=== PATIENT | female | born 1945 | race Caucasian/White ===

== ENCOUNTER 2019-06-10 11:31 | Emergency (ER) | payer MEDICARE, BC ==
[2019-06-10] MEDS ORDERED: Ondansetron 4 MG Tab.DIS PO ONE (11:40)
[2019-06-10] MEDS ORDERED: Alum Hydroxide/Mag Hydroxide 15 ML, Lidocaine 2% 15 ML PO ONE ×4 (11:41→13:56)
[2019-06-10] MEDS ORDERED: Ketorolac 30 MG/ML SDV IVPUSH ONE (12:08)
[2019-06-10] MEDS ORDERED: Sodium Chloride 0.9% 1,000 ML IV SCH (12:15)
[2019-06-10] MEDS ORDERED: Iopamidol 755 Mg/ML 100 ML Bottle IV ONE (13:48)
[2019-06-10] MEDS ORDERED: Promethazine 25 MG/ML SDV IM ONE (13:55)
[2019-06-10] MEDS ORDERED: LORazepam 1 MG Tab PO ONE (13:55)
[2019-06-10] MEDS: Sodium Chloride 0.9% 10 ML Syringe FLUSH PRN ×2 (14:22→15:40)
[2019-06-10 14:52] VITALS: BP 144/70; PULSE 95
--- NOTE | 2019-06-10 15:14 | EDM.PDOC ---
ED HPI GENERAL MEDICAL PROBLEM - General Chief Complaint: Gastrointestinal Problem Stated Complaint: ABD PAIN Time Seen by Provider: 06/10/19 11:35 Source of Information: Reports: Patient History Limitations: Reports: No Limitations - History of Present Illness INITIAL COMMENTS - FREE TEXT/NARRATIVE: Patient presented to the ED via EMS because of diffuse abdominal pain which stared at 1 am today. The pain is cramping,7/10, with associated nausea but no vomiting. There is no changes in bowel movements or urinary symptoms, there is no fever or chills. abdominal Pain Score (Numeric/FACES): 6 - Related Data Allergies Allergy/AdvReac Type Severity Reaction Status Date / Time cefadroxil hydrate Allergy Cannot Verified 05/13/15 10:35 [From Franko] Remember Home Meds: Home Meds Ascorbate Calcium [Vitamin C] 500 mg PO DAILY 05/19/15 [History] Calcium Carbonate/Vitamin D3 [Calcium 600 + D Tablet] 1 each PO DAILY 05/19/15 [ History] Flaxseed Oil [Flax Oil] 1,000 mg PO DAILY 05/19/15 [History] Folic Acid 0.4 mg PO DAILY 05/19/15 [History] Multivitamin with Minerals [Multivitamins with Minerals] 1 each PO DAILY [History] Acetaminophen/oxyCODONE [Percocet 325-5 MG] 1 - 2 each PO Q4H #15 tab 06/10/19 [ Rx] Ondansetron [Zofran ODT] 4 mg PO Q4H PRN #10 tab.dis 06/10/19 [Rx] Tamoxifen [Nolvadex] 20 mg PO DAILY 06/10/19 [History] prednisoLONE acetate [Pred Forte 1% Ophth Susp] 1 drop EYERT DAILY 06/10/19 [ History] Past Medical History Other HEENT History: 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 Other Cardiovascular History: MITRAL VALVE ABNORMALITY Other Respiratory History: SEASONAL ALLERGIES Other Gastrointestinal History: HEARTBURN TREATS WITH PEPPERMINTS. Other Neuro History: SURGERY FOR BRAIN TUMOR 1991, MENEIRES SYNDROME OF LEFT EAR. Other Dermatologic History: OF LEFT FOREHEAD. - Past Surgical History Other Female Surgeries/Procedures: 1 PARA 0 AB 1 DIAGNOSITIC LAPAROSCOPY Social & Family History - Family History Family Medical History: Noncontributory - Tobacco Use Smoking Status *Q: Former Smoker Used Tobacco, but Quit: Yes Month/Year Tobacco Last Used: 07/1988 - Caffeine Use Caffeine Use: Reports: Coffee, Tea - Recreational Drug Use Recreational Drug Use: No ED ROS GENERAL - Review of Systems Review Of Systems: See Below Constitutional: Reports: No Symptoms HEENT: Reports: No Symptoms Respiratory: Reports: No Symptoms Cardiovascular: Reports: No Symptoms Endocrine: Reports: No Symptoms GI/Abdominal: Reports: Abdominal Pain, Nausea. Denies: Black Stool, Bloody Stool, Constipation, Distension, Vomiting Musculoskeletal: Reports: No Symptoms Skin: Reports: No Symptoms Neurological: Reports: No Symptoms ED EXAM, GI/ABD - Physical Exam Exam: See Below Exam Limited By: No Limitations General Appearance: Alert, WD/WN, No Apparent Distress Ears: Normal External Exam, Normal Canal, Hearing Grossly Normal, Normal TMs Nose: Normal Inspection, Normal Mucosa, No Blood Throat/Mouth: Normal Inspection, Normal Lips, Normal Teeth, Normal Gums, Normal Oropharynx, Normal Voice Head: Atraumatic, Normocephalic Neck: Normal Inspection, Supple, Non-Tender, Full Range of Motion Respiratory/Chest: No Respiratory Distress, Lungs Clear, Normal Breath Sounds Cardiovascular: Normal Peripheral Pulses, Regular Rate, Rhythm, No Edema, No Gallop GI/Abdominal Exam: Normal Bowel Sounds, Soft, Other (diffusely tender). No: Guarding Course - Vital Signs Text/Narrative:: labs/CT scan reviewed with patient and with full understanding CT abd/pelvis-see result,consistent with pancreatitis NS 1 L bolus Zofran 4 mg IV GI cxocktail toradol 15 mg IV x1 morphine 2 mg IV x1 There is significant improvement of her pain and nausea Case discussed with Dr Fields who agreed with the plan to discharge patient to home for as long as she afebrile,normal wbc and is able to tolerate ora pain meds and anti emetics Last Recorded V/S: Last Vital Signs Temp 36.6 C 06/10/19 14:51 Pulse 95 06/10/19 14:51 Resp 15 06/10/19 14:51 BP 144/70 H 06/10/19 14:51 Pulse Ox 95 06/10/19 14:51 - Orders/Labs/Meds Orders: Active Orders 24 hr Category Date Time Status Abdomen Ltd [US] Stat Exams 06/10/19 14:44 Taken Abdomen Pelvis w Cont [CT] Stat Exams 06/10/19 12:05 Taken Sodium Chloride 0.9% [Normal Saline] 1,000 ml Med 06/10/19 12:15 Active IV ASDIRECTED Sodium Chloride 0.9% [Saline Flush] Med 06/10/19 12:05 Active 10 ml FLUSH ASDIRECTED PRN Saline Lock Insert [OM.PC] Routine Oth 06/10/19 12:05 Ordered Medication Orders Sodium Chloride (Normal Saline) 1,000 mls @ 999 mls/hr IV ASDIRECTED RASHEL Last Admin: 06/10/19 12:42 Dose: 999 mls/hr Sodium Chloride (Saline Flush) 10 ml FLUSH ASDIRECTED PRN PRN Reason: Keep Vein Open Last Admin: 06/10/19 15:40 Dose: 10 ml Admin: 06/10/19 14:22 Dose: 10 ml Labs: Laboratory Tests 06/10/19 06/10/19 06/10/19 Range/Units 12:23 12:25 12:25 WBC 11.7 (4.5-12.0) X10-3/uL RBC 4.28 (3.23-5.20) x10(6)uL Hgb 13.5 (11.5-15.5) g/dL Hct 39.9 (30.0-51.3) % MCV 93.3 (80-96) fL MCH 31.6 (27.7-33.6) pg MCHC 33.9 (32.2-35.4) g/dL RDW 12.5 (11.5-15.5) % Plt Count 263 (125-369) X10(3)uL MPV 9.2 (7.4-10.4) fL Add Manual Diff Yes Neutrophils % (Manual) 91 H (46-82) % Lymphocytes % (Manual) 6 L (13-37) % Monocytes % (Manual) 3 L (4-12) % Sodium 142 (135-145) mmol/L Potassium 3.6 (3.5-5.3) mmol/L Chloride 106 (100-110) mmol/L Carbon Dioxide 29 (21-32) mmol/L BUN 16 (7-18) mg/dL Creatinine 0.9 (0.55-1.02) mg/dL Est Cr Clr Drug Dosing TNP Estimated GFR (MDRD) > 60 (>60) BUN/Creatinine Ratio 17.8 (9-20) Glucose 147 H (80-116) mg/dL Calcium 9.6 (8.6-10.2) mg/dL Total Bilirubin 1.0 (0.1-1.3) mg/dL AST 84 H (5-25) IU/L ALT 204 H* (12-36) U/L Alkaline Phosphatase 113 H (56-112) IU/L Total Protein 7.2 (6.0-8.0) g/dL Albumin 3.9 (3.2-4.6) g/dL Globulin 3.3 g/dL Albumin/Globulin Ratio 1.2 Amylase 2456 H* (25-115) U/L Lipase (73-393) U/L Urine Color Yellow (YELLOW) Urine Appearance Slightly cloudy (CLEAR) Urine pH 6.0 (5.0-6.5) Ur Specific [place] 1.025 (1.010-1.025) Urine Protein Trace (NEGATIVE) mg/dL Urine Glucose (UA) Normal (NORMAL) mg/dL Urine Ketones 50 H (NEGATIVE) mg/dL Urine Occult Blood Negative (NEGATIVE) Urine Nitrite Negative (NEGATIVE) Urine Bilirubin Negative (NEGATIVE) Urine Urobilinogen 1 H (NEGATIVE) mg/dL Ur Leukocyte Esterase Negative (NEGATIVE) Urine WBC 0-5 (0-5) Ur Squamous Epith Cells Few H (NS,R,O) Urine Bacteria Moderate H (NS) 06/10/19 Range/Units 12:25 WBC (4.5-12.0) X10-3/uL RBC (3.23-5.20) x10(6)uL Hgb (11.5-15.5) g/dL Hct (30.0-51.3) % MCV (80-96) fL MCH (27.7-33.6) pg MCHC (32.2-35.4) g/dL RDW (11.5-15.5) % Plt Count (125-369) X10(3)uL MPV (7.4-10.4) fL Add Manual Diff Neutrophils % (Manual) (46-82) % Lymphocytes % (Manual) (13-37) % Monocytes % (Manual) (4-12) % Sodium (135-145) mmol/L Potassium (3.5-5.3) mmol/L Chloride (100-110) mmol/L Carbon Dioxide (21-32) mmol/L BUN (7-18) mg/dL Creatinine (0.55-1.02) mg/dL Est Cr Clr Drug Dosing Estimated GFR (MDRD) (>60) BUN/Creatinine Ratio (9-20) Glucose (80-116) mg/dL Calcium (8.6-10.2) mg/dL Total Bilirubin (0.1-1.3) mg/dL AST (5-25) IU/L ALT (12-36) U/L Alkaline Phosphatase (56-112) IU/L Total Protein (6.0-8.0) g/dL Albumin (3.2-4.6) g/dL Globulin g/dL Albumin/Globulin Ratio Amylase (25-115) U/L Lipase > 1500 H (73-393) U/L Urine Color (YELLOW) Urine Appearance (CLEAR) Urine pH (5.0-6.5) Ur Specific [place] (1.010-1.025) Urine Protein (NEGATIVE) mg/dL Urine Glucose (UA) (NORMAL) mg/dL Urine Ketones (NEGATIVE) mg/dL Urine Occult Blood (NEGATIVE) Urine Nitrite (NEGATIVE) Urine Bilirubin (NEGATIVE) Urine Urobilinogen (NEGATIVE) mg/dL Ur Leukocyte Esterase (NEGATIVE) Urine WBC (0-5) Ur Squamous Epith Cells (NS,R,O) Urine Bacteria (NS) Meds: Medications Generic Name Dose Route Start Last Admin Trade Name Freq PRN Reason Stop Dose Admin Sodium Chloride 1,000 mls @ 999 mls/hr 06/10/19 12:15 06/10/19 12:42 Normal Saline IV 999 mls/hr ASDIRECTED RASHEL Administration Sodium Chloride 10 ml 06/10/19 12:05 06/10/19 15:40 Saline Flush FLUSH 10 ml ASDIRECTED PRN Administration Keep Vein Open Discontinued Medications Generic Name Dose Route Start Last Admin Trade Name Freq PRN Reason Stop Dose Admin Al Hydroxide/Mg Hydroxide 15 0 ml 06/10/19 11:41 06/10/19 11:49 ml/ Lidocaine HCl 15 ml PO 06/10/19 11:42 15 ml ONETIME ONE Administration Al Hydroxide/Mg Hydroxide 15 0 ml 06/10/19 13:56 06/10/19 14:23 ml/ Lidocaine HCl 15 ml PO 06/10/19 13:57 Not Given ONETIME ONE Iopamidol 100 ml 06/10/19 13:48 06/10/19 13:53 Isovue-370 (76%) IV 06/10/19 13:49 87 ml ONETIME ONE Administration Ketorolac Tromethamine 30 mg 06/10/19 12:08 06/10/19 12:47 Toradol IVPUSH 06/10/19 12:09 30 mg ONETIME ONE Administration Lorazepam 1 mg 06/10/19 13:55 06/10/19 14:23 Ativan PO 06/10/19 13:56 Not Given ONETIME ONE Morphine Sulfate 2 mg 06/10/19 15:30 06/10/19 15:40 Morphine IVPUSH 06/10/19 15:31 2 mg ONETIME ONE Administration Ondansetron HCl 4 mg 06/10/19 11:40 06/10/19 11:49 Zofran Odt PO 06/10/19 11:41 4 mg ONETIME ONE Administration Promethazine HCl 25 mg 06/10/19 13:55 06/10/19 14:23 Phenergan IM 06/10/19 13:56 Not Given ONETIME ONE Departure - Departure Time of Disposition: 16:00 Disposition: Home, Self-Care 01 Condition: Good Clinical Impression: Cholelithiasis, Pancreatitis - Discharge Information Prescriptions: Acetaminophen/oxyCODONE [Percocet 325-5 MG] 1 - 2 each PO Q4H #15 tab Ondansetron [Zofran ODT] 4 mg PO Q4H PRN #10 tab.dis PRN Reason: Nausea Instructions: Cholelithiasis, Acute Pancreatitis, [id number]-[id number] Referrals: Lena Balbuena [employer] [Primary Care Provider] - Forms: ED Department Discharge Additional Instructions: please read discharge instructions on acute pancreatitis(inflammation of the pancreas) and cholelithiasis(gallstones) avoid greasy food zofran odt 4 mg every 4 hours as needed for nausea percocet 5/325, take 1-2 tablets every 4-6 hours as needed for pain call Dr iFelds's office to schedule an appointment for him to see you on - My Orders Last 24 Hours: My Active Orders 06/10/19 12:05 Abdomen Pelvis w Cont [CT] Stat Sodium Chloride 0.9% [Saline Flush] 10 ml FLUSH ASDIRECTED PRN Saline Lock Insert [OM.PC] Routine 06/10/19 12:15 Sodium Chloride 0.9% [Normal Saline] 1,000 ml IV ASDIRECTED 06/10/19 14:44 Abdomen Ltd [US] Stat - Assessment/Plan Last 24 Hours: My Active Orders 06/10/19 12:05 Abdomen Pelvis w Cont [CT] Stat Sodium Chloride 0.9% [Saline Flush] 10 ml FLUSH ASDIRECTED PRN Saline Lock Insert [OM.PC] Routine 06/10/19 12:15 Sodium Chloride 0.9% [Normal Saline] 1,000 ml IV ASDIRECTED 06/10/19 14:44 Abdomen Ltd [US] Stat
[2019-06-10] MEDS ORDERED: Morphine 2 MG/ML Syringe IVPUSH ONE (15:30)
== END 2019-06-10 15:45 | disposition home or self-care (01) ==
LOC: FB.ED 11:31
DX: K80.20 Calculus of gallbladder without cholecystitis without obstruction (principal); K85.90 Acute pancreatitis without necrosis or infection, unspecified; Z88.8 Allergy status to other drugs, medicaments and biological substances; Z87.891 Personal history of nicotine dependence
CPT/HCPCS: 36415; 74177; 76705; 80053; 81001; 82150; 83690; 85025; 96361; 96374; 96375; 99284-25; A9270-GY; J1885; J2270; J7030; Q9967

== ENCOUNTER 2019-07-04 07:00 | Day surgery (SDC) | payer MEDICARE, BC ==
[~2019-07-04 07:00] MED LIST: Lactated Ringers 1,000 ML IV SCH; Ondansetron 4 MG/2 ML SDV IVPUSH ONE; Scopolamine 1.5 MG Transdermal Patch TRDERM ONE; Sodium Chloride 0.9% 10 ML Syringe FLUSH PRN
[2019-07-04] MEDS ORDERED: fentaNYL 100 MCG/2 ML SDV IV ONE (07:01)
[2019-07-04] MEDS ORDERED: Ondansetron 4 MG/2 ML SDV IVPUSH ONE (07:01)
[2019-07-04] MEDS ORDERED: Rocuronium 100 MG/10 ML MDV IV ONE (07:01)
[2019-07-04] MEDS ORDERED: Lactated Ringers 1,000 ML IV ONE (07:01)
[2019-07-04] MEDS ORDERED: Midazolam 1 MG/ML 2 ML SDV IV ONE (07:01)
[2019-07-04] MEDS ORDERED: Ketorolac 30 MG/ML SDV IVPUSH ONE (07:01)
[2019-07-04] MEDS ORDERED: Dexamethasone 4 MG/ML 5 ML MDV IVPUSH ONE (07:01)
[2019-07-04] MEDS ORDERED: Propofol 200 MG/20 ML SDV IV ONE (07:01)
[2019-07-04] MEDS ORDERED: Sugammadex Sodium 200 MG/2 ML VIAL IV ONE (07:01)
--- NOTE | 2019-07-04 07:26 | PCM.HP.2 ---
H&P History of Present Illness - General Date of Service: 07/04/19 Admit Problem/Dx: Admission Diagnosis/Problem Admission Diagnosis/Problem Laparoscopic cholecystectomy - History of Present Illness Initial Comments - Free Text/Narative: Pt with a hx of gallstone pancreatitis. The pain has resolved and the lab work and ultrasound are normal except for stones. She is currently without complaints. Has been followed weekly by me in the clinic since her presentation several weeks ago. - Related Data Allergies/Adverse Reactions: Allergies Allergy/AdvReac Type Severity Reaction Status Date / Time cefadroxil hydrate Allergy Itching Verified 07/01/19 14:57 [From Duricef] ethinyl estradiol Allergy Other Verified 07/01/19 14:35 [From Seasonale ()] levonorgestrel Allergy Other Verified 07/01/19 14:35 [From Seasonale ()] Cmbqnpt-Hbp-Fzv Reductase Allergy Other Verified 07/01/19 14:35 Inhibitor Home Medications: Home Meds Ascorbate Calcium [Vitamin C] 500 mg PO DAILY 05/19/15 [History] Calcium Carbonate/Vitamin D3 [Calcium 600 + D Tablet] 1 each PO DAILY 05/19/15 [ History] Flaxseed Oil [Flax Oil] 1,000 mg PO DAILY 05/19/15 [History] Folic Acid 0.4 mg PO DAILY 05/19/15 [History] Multivitamin with Minerals [Multivitamins with Minerals] 1 each PO DAILY [History] Acetaminophen/oxyCODONE [Percocet 325-5 MG] 1 - 2 each PO Q4H #15 tab 06/10/19 [ Rx] Ondansetron [Zofran ODT] 4 mg PO Q4H PRN #10 tab.dis 06/10/19 [Rx] Tamoxifen [Nolvadex] 20 mg PO DAILY 06/10/19 [History] prednisoLONE acetate [Pred Forte 1% Ophth Susp] 1 drop EYERT DAILY 06/10/19 [ History] [place]-3/DHA/Epa/Fish Oil [Fish Oil 1,000 mg Softgel] 1 cap PO DAILY 07/01/19 [ History] Past Medical History Other HEENT History: 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 MENIERE'S DISEASE Other Cardiovascular History: MITRAL VALVE ABNORMALITY Other Respiratory History: SEASONAL ALLERGIES Other Gastrointestinal History: HEARTBURN TREATS WITH PEPPERMINTS. Other Genitourinary History: ESTROGEN RECEPTOR POSITIVE Other Neuro History: SURGERY FOR BRAIN TUMOR 1991, MENEIRES SYNDROME OF LEFT EAR. Oncologic (Cancer) History: Reports: Breast Other Dermatologic History: MALIGNANT NEOPLASM OF SKIN - Past Surgical History Other Female Surgeries/Procedures: 1 PARA 0 AB 1 DIAGNOSITIC LAPAROSCOPY Other Neurological Surgeries/Procedures: BRAIN SURGERY Oncologic Surgical History: Reports: Lumpectomy Social & Family History - Family History Family Medical History: Noncontributory - Caffeine Use Caffeine Use: Reports: Coffee, Tea H&P Review of Systems - Review of Systems: Review Of Systems: See Below General: Reports: No Symptoms HEENT: Reports: No Symptoms Pulmonary: Reports: No Symptoms Cardiovascular: Reports: No Symptoms Gastrointestinal: Reports: No Symptoms Genitourinary: Reports: No Symptoms, Dysmenorrhea Skin: Reports: No Symptoms Neurological: Reports: No Symptoms Exam - Exam Exam: See Below - Vital Signs Weight: 59.421 kg - Exam General: Alert, Oriented Lungs: Clear to Auscultation, Normal Respiratory Effort Cardiovascular: Regular Rate, Regular Rhythm GI/Abdominal Exam: Normal Bowel Sounds, Soft, Non-Tender Back Exam: Normal Inspection Skin: Warm, Dry, Intact *Q Meaningful Use (ADM) - VTE *Q VTE Pharmacological Contraindications *Q: Patient Scheduled Surgery - Problem List (1) Cholelithiasis SNOMED Code(s): 113259911 ICD Code: K80.20 - CALCULUS OF GALLBLADDER W/O CHOLECYSTITIS W/O OBSTRUCTION Status: Acute Current Visit: No Qualifiers: Cholelithiasis location: gallbladder Cholecystitis presence: without cholecystitis Biliary obstruction: without biliary obstruction Qualified Code(s): K80.20 - Calculus of gallbladder without cholecystitis without obstruction Problem List Initiated/Reviewed/Updated: Yes Orders Last 24hrs: Active Orders 24 hr Category Date Time Status Patient Status [ADT] Routine ADT 07/04/19 06:45 Active Patient to Empty Bladder [RC] ASDIRECTED Care 07/04/19 06:45 Active RT Incentive Spirometry [RC] ASDIRECTED Care 07/04/19 06:45 Active Verify Patient Consent Obtain [RC] ASDIRECTED Care 07/04/19 06:45 Active Nothing Per Oral Diet [DIET] Diet 07/03/19 Dinner Ordered Clindamycin in 0.9 % Sod Chlor [Cleocin in NS] Med 07/04/19 07:30 Active 900 mg in 50 ml IV ONETIME Lactated Ringers [Ringers, Lactated] 1,000 ml Med 07/04/19 06:45 Active IV ASDIRECTED Sodium Chloride 0.9% [Saline Flush] Med 07/04/19 06:45 Active 10 ml FLUSH ASDIRECTED PRN Peripheral IV Insertion Adult [OM.PC] Routine Oth 07/04/19 06:45 Ordered Sequential Compression Device [OM.PC] Routine Oth 07/04/19 06:45 Ordered Medication Orders Lactated Ringer's (Ringers, Lactated) 1,000 mls @ 125 mls/hr IV ASDIRECTED RASHEL Clindamycin/Sodium Chloride (Cleocin In Ns) 900 mg in 50 mls @ 100 mls/hr IV ONETIME ONE Stop: 07/04/19 07:59 Sodium Chloride (Saline Flush) 10 ml FLUSH ASDIRECTED PRN PRN Reason: Keep Vein Open Assessment/Plan Comment:: Plan lap cholecystectomy. procedure and risks explained to the pt to include bleeding, infection, injury to the common bile duct, liver, intestine and blood vessel. The need to open has been discussed as well. expressed understanding and asks us to proceed. - Mortality Measure Prognosis:: Good
[2019-07-04] MEDS ORDERED: Clindamycin in 0.9 % Sod Chlor 900 MG/50 ML BAG IV ONE (07:30)
[2019-07-04] MEDS ORDERED: Lidocaine 1% with EPINEPHrine 1:100,000 20 ML MDV INJECT ONE (08:15)
[2019-07-04] MEDS ORDERED: Bupivacaine 0.5% 50 ML MDV INJECT ONE (08:16)
--- NOTE | 2019-07-04 08:45 | PCM.OPNOTE ---
- General Post-Op/Procedure Note Date of Surgery/Procedure: 07/04/19 Operative Procedure(s): lap cholecystectomy Findings: gallbladder with stones critical view was obtained. Pre Op Diagnosis: gallstones without obstruction or cholecystitis. hx of gallstone pancreatitis Post-Op Diagnosis: Same Anesthesia Technique: General ET Tube, Local (9 ml 1 % lido with epi/ 0.5% buvipicaine) Primary Surgeon: Demetri Fields Anesthesia Provider: Derrell Culver Pathology: gallbladder and contents Complications: None Condition: Good Free Text/Narrative:: see dictation
[2019-07-04] MEDS ORDERED: Acetaminophen/HYDROcodone 325-5 MG Tab PO PRN (08:49)
[2019-07-04 10:57] VITALS: BP 123/56; PULSE 87
--- NOTE | 2019-07-04 13:55 | OR ---
DATE OF OPERATION: 07/04/2019 SURGEON: Demetri Fields MD PROCEDURE PERFORMED: Laparoscopic cholecystectomy. PREOPERATIVE DIAGNOSIS: Cholelithiasis with past history of gallstone pancreatitis. POSTOPERATIVE DIAGNOSIS: Cholelithiasis with past history of gallstone pancreatitis. INDICATIONS FOR PROCEDURE: This is a 73-year-old white female who was seen approximately 3 weeks ago with a presentation of gallstone pancreatitis. Lab work quickly normalized to normal levels. Followup ultrasound was negative for any choledocholithiasis and she had a normal-sized common bile duct. She was offered and accepted interval laparoscopic cholecystectomy to remove the gallbladder and the source of her pancreatitis. INTRAOPERATIVE FINDINGS: One critical view was obtained and 9 mL of 1:1 mixture of 1% lidocaine with epinephrine, 0.5% bupivacaine was also used. DESCRIPTION OF OPERATION: After an excellent general anesthetic was administered via endotracheal tube, the patient was prepped and draped in the usual sterile manner. Our local mixture was then used to infiltrate the area below the umbilicus. A small vertical midline incision was carried out with a #15 scalpel blade. Blunt dissection was carried out exposing the midline fascia. 2 stay sutures of 0 Vicryl were placed on either side, which was then elevated. The fascia was incised, and the abdominal cavity was entered. After digital palpation to ensure no adhesions, a 10.5 mm Cynthia trocar was inserted. Under direct visualization, three 5 mm ports were placed, 1 in the midline epigastrium and 2 below the right costal margin. This was done by infiltrating more local, making stab incisions with a #15 scalpel blade and then inserting our trocars. The gallbladder was grasped, retracted in a cephalad fashion. Filmy adhesions were taken down. The infundibulum was grasped and careful blunt dissection was carried out exposing the cystic duct and the cystic artery. After obtaining our critical view and ensuring that these were our 2 structures, a clip was placed proximally at the level of the infundibulum and 2 just proximal to this. 2 clips were placed proximally on the cystic artery and 1 distally. These structures were then transected. L-hook cautery dissection was carried out dissecting the gallbladder free from the gallbladder fossa. The specimen was then passed into the specimen bag and delivered out through the umbilical port. The area was irrigated and after assuring excellent hemostasis, the three 5 mm ports were removed. This showed no hemorrhage. The pneumoperitoneum was released. The midline periumbilical port was closed with a [id number] 0 Vicryl, subcu 4-0 Vicryl was used to close the skin. Needle, sponge, and instrument counts were reported as correct. The patient was taken to recovery room in good condition. /[id number] /MODL
== END 2019-07-04 11:27 | disposition home or self-care (01) ==
LOC: FB.SDS 07:00
PROVIDERS: ATTEND Surgery
DX: K80.12 Calculus of gallbladder with acute and chronic cholecystitis without obstruction (principal); K85.10 Biliary acute pancreatitis without necrosis or infection; Z88.1 Allergy status to other antibiotic agents; Z88.8 Allergy status to other drugs, medicaments and biological substances; Z79.899 Other long term (current) drug therapy
CPT/HCPCS: 00790; 47562; 88304; 94150; A9270; J1100; J1885; J2250; J2405; J2704; J3010; J3490; J7120